=== PATIENT | male | born 1990 | race American Indian/Alaskan Native ===

== ENCOUNTER 2017-06-05 23:48 | Emergency (ER) | payer SELFPAY ==
[2017-06-06] MEDS ORDERED: TDAP Vaccine 0.5 mL Syr IM ONE (00:20)
--- NOTE | 2017-06-06 00:27 | ED PDOC ---
Arrival/HPI - General Chief Complaint: Psychiatric Evaluation Time Seen by Provider: 06/06/17 00:04 Historian: Patient - History of Present Illness Narrative History of Present Illness (Text): 06/06/17 00:28 A 27 year old male presents to the emergency department with head contusion and superficial abrasion after hitting head against the chair and wall. Patient states he was trying to hurt himself, denies hurting himself in the past. Reports he has been stressed, angry and overwhelmed with family and girlfriend problems. Patient was never seen by a therapist or psychiatrist. Denies any suicidal ideation, homicidal ideation, anxiety, hallucinations. Denies any drug use. Notes to social drinking, no drinking tonight. Patient denies any other complaints at this time. Symptom Onset: Sudden Symptom Course: Unchanged Activities at Onset: Rest Context: Home Past Medical History - Provider Review Nursing Documentation Reviewed: Yes - Psychiatric Hx Substance Use: No - Anesthesia Hx Anesthesia: No Family/Social History - Physician Review Nursing Documentation Reviewed: Yes Family/Social History: No Known Family HX Smoking Status: Never Smoked Hx Alcohol Use: Yes Frequency of alcohol use: Socially Hx Substance Use: No Allergies/Home Meds Allergies/Adverse Reactions: Allergies No Known Allergies Allergy (Verified 06/06/17 00:17) Review of Systems - Physician Review All systems were reviewed & negative as marked: Yes - Review of Systems Constitutional: absent: Fevers Skin: Other (forehead contusion and superficial abrasion) Psychiatric: absent: Anxiety, Suicidal Ideation, Other (hallucinations, homicidal ideation) Physical Exam Vital Signs Reviewed: Yes Vital Signs Temp Pulse Resp BP Pulse Ox 06/06/17 00:40 98.4 F 71 18 132/82 100 Appearance: Positive for: Well-Appearing, Non-Toxic, Comfortable Pain Distress: None Mental Status: Positive for: Alert and Oriented X 3 - Systems Exam Head: Present: Other (midline forehead contusion, superficial abrasion on top of it 3 cm in diameter) Pupils: Present: Other (midsize) Extroacular Muscles: Present: EOMI Conjunctiva: Present: Normal Mouth: Present: Moist Mucous Membranes Respiratory/Chest: Present: Clear to Auscultation, Good Air Exchange. No: Respiratory Distress, Accessory Muscle Use Cardiovascular: Present: Regular Rate and Rhythm, Normal S1, S2. No: Murmurs Abdomen: Present: Normal Bowel Sounds. No: Tenderness, Distention, Peritoneal Signs Upper Extremity: Present: Normal Inspection. No: Cyanosis, Edema Lower Extremity: Present: Normal Inspection. No: Edema Neurological: Present: GCS=15, CN II-XII Intact, Speech Normal, Other (no pronator drift, 5/5 muscle strength, follows commands) Skin: Present: Warm, Dry, Normal Color. No: Rashes Psychiatric: Present: Alert, Oriented x 3, Normal Concentration. No: Anxious, Suicidal Ideation Medical Decision Making ED Course and Treatment: 06/06/17 00:24 Impression: A 27 year old male with head contusion and superficial abrasion after hurting himself. Denies any suicidal ideation, homicidal ideation. Plan: -- Tylenol -- Boostrix Vaccine -- Reassess and disposition Progress Notes: PES will evaluate patient. EKG: Ordered, reviewed, and independently interpreted the EKG. Rate : 70 BPM Rhythm : NSR Interpretation : No ST changes noted, no ectopy Comparison : No previous EKG for comparison. 06/06/17 03:01 On re-evaluation, patient feels better and is in no acute distress. I have discussed the results and plan with the patient, who expresses understanding. Patient in agreement with plan to be discharged home. Patient is stable for discharge. Patient was given contact info for [facility]. Patient was instructed to follow up with physician or return if symptoms worsen or new concerning symptoms arise. - Medication Orders Current Medication Orders: Discontinued Medications Acetaminophen (Tylenol 325mg Tab) 650 mg PO STAT STA Stop: 06/06/17 00:20 Tetanus/Reduced Diphtheria/Acell Pertussis (Boostrix Vaccine Inj) 0.5 ml IM .ONCE ONE Stop: 06/06/17 00:21 - Scribe Statement The provider has reviewed the documentation as recorded by the Milo Delgado Provider Scribe Attestation: All medical record entries made by the Scribatul were at my direction and personally dictated by me. I have reviewed the chart and agree that the record accurately reflects my personal performance of the history, physical exam, medical decision making, and the department course for this patient. I have also personally directed, reviewed, and agree with the discharge instructions and disposition. Disposition/Present on Arrival - Present on Arrival Any Indicators Present on Arrival: No History of DVT/PE: No History of Uncontrolled Diabetes: No Urinary Catheter: No History of Decub. Ulcer: No History Surgical Site Infection Following: None - Disposition Have Diagnosis and Disposition been Completed?: Yes Diagnosis: Stress and adjustment reaction Disposition: HOME/ ROUTINE Disposition Time: 02:54 Patient Plan: Discharge Patient Problems: Current Active Problems Problem Status Onset Stress and adjustment reaction Acute Condition: GOOD Discharge Instructions (ExitCare): Anxiety (ED) [facility] - Follow up with primary Forms: [employer] (Lebanese)
[2017-06-06 00:40] VITALS: O2SAT 100
[2017-06-06 03:12] VITALS: BP 134/75; PULSE 80; RESP 17; TEMP 98.6
--- NOTE | 2017-06-06 22:21 | CARD ---
APPROVED REPORT EKG Measurement Heart [id number] <Conclusion> Normal sinus rhythm with sinus arrhythmia Normal ECG
== END 2017-06-06 03:12 | disposition home or self-care (01) ==
LOC: ED 23:48
DX: F43.20 Adjustment disorder, unspecified (principal); Z23 Encounter for immunization

== ENCOUNTER 2018-02-19 12:12 | Emergency (ER) | payer MEDICAID ==
[2018-02-19 12:54] VITALS: RESP 18; O2SAT 100; BMI 25.8
--- NOTE | 2018-02-19 13:05 | ED PDOC ---
Arrival/HPI - General Time Seen by Provider: 02/19/18 12:55 Historian: Patient - History of Present Illness Narrative History of Present Illness (Text): 02/19/18 13:02 A 28 year old male, with no known past medical history, presents to the emergency department complaining of 3 day duration right hand pain. 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 He notes that the pain has been constant since then. He notes that he is right hand dominant. The patient denies fevers, chills, headache, dizziness, sore throat, cough, chest pain, shortness of breath, dyspnea on exertion, abdominal pain, nausea, vomiting, diarrhea, neck/back pain , urinary/bowel changes or any other complaint. PMD: None Time/Duration: Other (3 Days) Symptom Onset: Sudden Symptom Course: Unchanged Activities at Onset: Rest, Light Context: Work Past Medical History - Provider Review Nursing Documentation Reviewed: Yes - Cardiac Hx Cardiac Disorders: No Hx Hypertension: No - Pulmonary Hx Tuberculosis: No - Neurological HX Cerebrovascular Accident: No Hx Seizures: No - Hematological/Oncological Hx Cancer: No - Genitourinary/Gynecological Hx Sexually Transmitted Diseases: No - Psychiatric Hx Substance Use: No - Anesthesia Hx Anesthesia: No Family/Social History - Physician Review Nursing Documentation Reviewed: Yes Family/Social History: No Known Family HX Smoking Status: Never Smoked Hx Alcohol Use: Yes Hx Substance Use: No Allergies/Home Meds Allergies/Adverse Reactions: Allergies amoxicillin Allergy (Verified 02/19/18 13:03) RASH Penicillins Allergy (Verified 02/19/18 13:03) RASH Review of Systems - Physician Review All systems were reviewed & negative as marked: Yes - Review of Systems Constitutional: absent: Fevers, Night Sweats ENT: absent: Sore Throat Respiratory: absent: SOB, Cough Cardiovascular: absent: Chest Pain, ESPINOZA Gastrointestinal: absent: Abdominal Pain, Stool Changes, Diarrhea, Nausea, Vomiting Genitourinary Male: absent: Urinary Output Changes Musculoskeletal: Other (Right hand pain.). absent: Back Pain, Neck Pain Neurological: absent: Headache, Dizziness Physical Exam Vital Signs Reviewed: Yes Vital Signs Temp Pulse Resp BP Pulse Ox 02/19/18 12:54 99 F 70 18 111/73 100 Temperature: Afebrile Blood Pressure: Normal Pulse: Regular Respiratory Rate: Normal Appearance: Positive for: Well-Appearing, Non-Toxic, Comfortable Pain Distress: None Mental Status: Positive for: Alert and Oriented X 3 - Systems Exam Head: Present: Atraumatic, Normocephalic Pupils: Present: PERRL Extroacular Muscles: Present: EOMI Conjunctiva: Present: Normal Mouth: Present: Moist Mucous Membranes Neck: Present: Normal Range of Motion Respiratory/Chest: Present: Clear to Auscultation, Good Air Exchange. No: Respiratory Distress, Accessory Muscle Use Cardiovascular: Present: Regular Rate and Rhythm, Normal S1, S2. No: Murmurs Abdomen: No: Tenderness, Distention, Peritoneal Signs Back: Present: Normal Inspection Upper Extremity: Present: Tenderness (Tenderness to the ulnar dorsal side of the right hand) Lower Extremity: Present: Normal Inspection. No: Edema Neurological: Present: GCS=15, CN II-XII Intact, Speech Normal Skin: Present: Warm, Dry, Normal Color. No: Rashes Psychiatric: Present: Alert, Oriented x 3, Normal Insight, Normal Concentration Medical Decision Making ED Course and Treatment: 02/19/18 13:07 Impression: A 28 year old male presents to the emergency department complaining of 3 day duration right hand pain s/p hitting it against a metal machine at work. Differential Diagnosis included but are not limited to: Hand contusion r/o fracture Plan: -- Right Hand X- Ray -- Motrin -- Reassess and disposition Progress Notes: PROCEDURE: Right Hand Radiographs. Dictator : Darian Davies MD Report Date : 02/19/2018 13:25:32 IMPRESSION: Normal right hand radiographs. 02/19/18 14:24 On reevaluation the patient feels better and is in no acute distress. I have discussed the results and plan with the patient, who expresses understanding. Patient given the opportunity to ask question, all questions were answered and there is agreement with the plan to discharge the patient home. Patient is stable for discharge. Patient was instructed to follow up with physician/clinic in 1-2 days or return if symptoms persist/worsen or new concerning symptoms arise. - RAD Interpretation Radiology Orders: 02/19/18 13:01 HAND RIGHT 3 VIEWS [RAD] Stat - Medication Orders Current Medication Orders: Discontinued Medications Ibuprofen (Motrin Tab) 600 mg PO STAT STA Stop: 02/19/18 13:02 Last Admin: 02/19/18 13:10 Dose: 600 mg MAR Pain/Vitals Document 02/19/18 13:10 HI (Rec: 02/19/18 13:16 [place] [id number] Pain Reassessment Is This A Pain ReAssessment? No Sleep Is patient sleeping during reassessment? No Presence of Pain Presence of Pain Yes Location Left, Right or Bilateral Right Pain Location Body Site Hand - Scribe Statement The provider has reviewed the documentation as recorded by the Scribe Sheeba Urias Provider Scribe Attestation: All medical record entries made by the Scribe were at my direction and personally dictated by me. I have reviewed the chart and agree that the record accurately reflects my personal performance of the history, physical exam, medical decision making, and the department course for this patient. I have also personally directed, reviewed, and agree with the discharge instructions and disposition. Disposition/Present on Arrival - Present on Arrival Any Indicators Present on Arrival: No History of DVT/PE: No History of Uncontrolled Diabetes: No Urinary Catheter: No History Surgical Site Infection Following: None - Disposition Have Diagnosis and Disposition been Completed?: Yes Diagnosis: Contusion of hand, right Disposition: HOME/ ROUTINE Disposition Time: 14:24 Patient Plan: Discharge Patient Problems: Current Active Problems Problem Status Onset Contusion of hand, right Acute Condition: IMPROVED Discharge Instructions (ExitCare): Contusion (DC) Additional Instructions: MARITZA PRADO, thank you for letting us take care of you today. Your provider was Vinicius Waters DO and you were treated for (R) HAND CONTUSION. The emergency medical care you received today was directed at your acute symptoms. If you were prescribed any medication, please fill it and take as directed. It may take several days for your symptoms to resolve. Return to the Emergency Department if your symptoms worsen, do not improve, or if you have any other problems. Please contact your doctor or call one of the physicians/clinics you have been referred to that are listed on the Patient Visit Information form that is included in your discharge packet. Bring any paperwork you were given at discharge with you along with any medications you are taking to your follow up visit. Our treatment cannot replace ongoing medical care by a primary care provider outside of the emergency department. Thank you for allowing the [facility] team to be part of your care today. If you had an X-Ray or CT scan: A Radiologist will review the ED reading if any change in treatment is needed we will contact you. If you had a blood, urine, or wound culture: It will take several days for the results, if any change in treatment is needed we will contact you. If you had an STI test: It will take 48 hours for the results. Please call after 1 week if you have not heard back. Prescriptions: Ibuprofen [Motrin] 600 mg PO Q6 PRN #30 tab PRN Reason: Pain, Moderate (4-7) Referrals: Subha Munson MD [Staff Provider] - Follow up with primary Forms: [facility] (Niuean), WORK NOTE
--- NOTE | 2018-02-19 13:26 | RAD ---
PROCEDURE: Right Hand Radiographs. HISTORY: injury r/o fx COMPARISON: None. FINDINGS: BONES: Normal. No fracture. JOINTS: Normal. No osteoarthritic changes. SOFT TISSUES: Normal. OTHER FINDINGS: None. IMPRESSION: Normal right hand radiographs.
[2018-02-19 22:25] VITALS: BP 115/82; PULSE 75; TEMP 98.9
== END 2018-02-19 13:41 | disposition home or self-care (01) ==
LOC: ED 12:12
DX: S60.221A Contusion of right hand, initial encounter (principal); W22.8XXA Striking against or struck by other objects, initial encounter; Y92.89 Other specified places as the place of occurrence of the external cause; Y99.0 Civilian activity done for income or pay